=== PATIENT | female | born 1995 | race Caucasian/White ===

== ENCOUNTER 2016-10-09 21:21 | Emergency (ER) | payer SELFPAY | END 2016-10-10 01:19 | disposition home or self-care (01) | LOC: ER 21:21 | DX: J02.0 Streptococcal pharyngitis (principal); K02.9 Dental caries, unspecified; F17.210 Nicotine dependence, cigarettes, uncomplicated | CPT/HCPCS: 36415; 80053; 81001; 84703; 85025; 87088; 87804; 87880 ==